=== PATIENT | male | born 1965 | race Caucasian/White ===

== ENCOUNTER 2024-03-04 10:48 | Emergency (ER) | payer MEDICAID, SELFPAY ==
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
--- NOTE | ~2024-03-04 | XR_ITS ---
EXAMINATION: XR SHOULDER, LEFT CLINICAL INFORMATION: left shoulder injury COMPARISON: None available. TECHNIQUE: AP external rotation, Grashey, scapular Y, and axillary views of the left shoulder. FINDINGS: There is a likely comminuted fracture of the left scapula, traversing the waning, spine, and possibly involving the inferior left glenoid. There is a minimally displaced fracture of the distal clavicle, with no overriding or angulation, however there is 5 mm of superior displacement of the distal fragment. Displaced fractures of left ribs 2 through 5, with tandem fractures ribs 3 and 4. No pneumothorax evident. Redemonstration of patchy opacity in the retrocardiac region left base. Glenohumeral joint is aligned anatomically. The AC joint is intact. The subacromial space is normal. No soft tissue abnormality grossly. XR/XR shoulder LT min 2V IMPRESSION: 1. Comminuted left scapular fracture is suspected, which likely involves the left inferior glenoid. Glenohumeral joint maintains normal alignment. 2. Mildly displaced but not angulated overriding fracture of the distal left clavicle. 3. Displaced fractures of the left second through fifth ribs. There are tandem fractures in the fourth and fifth ribs. 4. Left lung demonstrates no definite pneumothorax. There are patchy opacities in the retrocardiac region. Electronically signed by: Aidan Aragon MD 03/04/2024 12:57 PM [facility]
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
--- NOTE | ~2024-03-04 | XR_ITS ---
EXAMINATION: XR RIBS, LEFT CLINICAL INFORMATION: pain, injury COMPARISON: None available. TECHNIQUE: AP chest, and 3 views left ribs. FINDINGS: The cardiac silhouette is mildly prominent but likely magnified by technique. Aorta is uncoiled and mildly calcified. Normal hilar silhouettes. There is no pneumothorax or definitive effusion. Patchy atelectasis left base. Lungs otherwise clear. There are displaced fractures of the posterior second through fifth ribs on the left. There may be a first rib fracture as well. There is a fracture through the superior scapula just below the spine. The fracture appears to traverse the spine and may involve the inferior glenoid. There is a left distal clavicular fracture which is minimally displaced with no significant overriding or angulation. XR/XR ribs LT min 3V w CXR1V IMPRESSION: 1. Acute displaced fractures of the left second through fifth ribs posteriorly. There may be a first rib fracture as well. The left third and fourth ribs have tandem fractures. 2. Acute fracture through the superior scapula, which appears to traverse the scapular spine, and ultimately may involve the inferior glenoid. 3. There is no pneumothorax or effusion. There is patchy atelectasis/opacity in the left base. Differential includes atelectasis, contusion, and pneumonia. 4. The lungs are otherwise clear. Electronically signed by: Aidan Aragon MD 03/04/2024 12:53 PM [facility]
--- NOTE | ~2024-03-04 | CT_ITS ---
EXAMINATION: CT HEAD WITHOUT CONTRAST CT CERVICAL SPINE WITHOUT CONTRAST CLINICAL INFORMATION: Trauma. Positive head strike. COMPARISON: CT head dated 07/29/2019. TECHNIQUE: Contiguous axial imaging was performed from the skull base to vertex without intravenous administration of contrast. Contiguous axial CT images of the cervical spine were obtained without contrast. Sagittal and coronal reformats were provided and reviewed. This CT examination was performed using dose optimization techniques as appropriate, variously including the following: *Automated exposure control *Adjustment of mA and/or kV according to patient size (this includes techniques or standardized protocols for targeted exams where dose is matched to indication/reason for exam; i.e. extremities or head) *Use of iterative reconstruction technique DLP: 2212 mGy-cm FINDINGS: HEAD: There is no evidence of acute intracranial hemorrhage or territorial infarction. No abnormal mass effect or midline shift is seen. Up to white matter differentiation is well preserved. No extra-axial fluid collections are identified. The ventricles are normal in size. There is no abnormal attenuation within the brain parenchyma. The osseous structures and soft tissues are normal. The mastoid air cells and visualized portions of the paranasal sinuses are well aerated. CERVICAL SPINE: Normal vertebral body alignment. The normal cervical lordosis is maintained. No acute cervical spine fracture or subluxation. No loss of vertebral body height. Mild multilevel loss of intervertebral disc height with mild degenerative endplate changes. Unremarkable facet joints. No lytic or blastic osseous lesion. There are partially visualized, comminuted and mildly displaced fractures through the posterior aspect of the left 2nd and 3rd ribs. Trace adjacent pleural thickening and trace left apical pneumothorax with a small amount of air in the left chest wall. Findings are better evaluated on the concurrent chest CT. Unremarkable prevertebral soft tissues. No abnormal soft tissue mass or fluid collection. Thyroid within normal limits. Visualized lung apices are clear. Mild multilevel bilateral neural foraminal stenosis. No significant central canal stenosis. CT/CT cervical spine wo IV con IMPRESSION: Head: No acute intracranial hemorrhage or mass effect. Cervical Spine: No acute cervical spine fracture or subluxation. Partially visualized, comminuted and mildly displaced fractures through the posterior aspect of the left 2nd and 3rd ribs with trace adjacent pleural thickening and trace left apical pneumothorax. Findings are better evaluated on the concurrent chest CT. Electronically signed by: Tyree Farias MD 03/04/2024 04:16 PM [facility] [place]
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
[2024-03-04 11:20] VITALS: BP 128/70; PULSE 72; RESP 19; TEMP 36.6; O2SAT 98; BMI 22.9
--- NOTE | 2024-03-04 13:23 | PC.NURSE ---
CALL PLACED TO [facility] [place] LINE
[2024-03-04 13:55] VITALS: RESP 19
[2024-03-04] MEDS: Morphine Sulfate 4 MG/ML CARTRIDGE IVPUSH (13:55)
[2024-03-04] MEDS: 0.9 % Sodium Chloride 1,000 ML 999 ML IV (13:55)
[2024-03-04] MEDS: iohexoL 350 MG/ML 100 ML INFUS..BTL 85 ML IV (14:28)
[2024-03-04] MEDS: HYDROmorphone HCl 0.5 MG/0.5 ML SYRINGE IVPUSH (15:06)
--- NOTE | 2024-03-04 15:27 | PC.NURSE ---
This nurse called [facility] for Nurse to nurse NA. Will try again.
--- NOTE | 2024-03-04 15:36 | PC.NURSE ---
This Nurse called [facility] for report NA, still on hold again.
--- NOTE | 2024-03-04 15:56 | PC.NURSE ---
This nurse called [facility] again for nurse to nurse on hold for 20 minutes NA.
[2024-03-04 15:57] VITALS: BP 130/62; PULSE 75; RESP 19; TEMP 37.2; O2SAT 95
--- NOTE | 2024-03-04 16:02 | PC.NURSE ---
data collection interviewer aware that this nurse called [facility] multiple times and no answer on [facility] end.
== END 2024-03-04 15:57 | disposition short-term general hospital (02) ==
PROVIDERS: Emergency Provider Emergency Medicine
DX: S42.102A Fracture of unspecified part of scapula, left shoulder, initial encounter for closed fracture (principal); S22.42XA Multiple fractures of ribs, left side, initial encounter for closed fracture; M25.512 Pain in left shoulder; R51.9 Headache, unspecified; R07.81 Pleurodynia; M54.50 Low back pain, unspecified; F11.10 Opioid abuse, uncomplicated; V03.10XA Pedestrian on foot injured in collision with car, pick-up truck or van in traffic accident, initial encounter; Y93.89 Activity, other specified; Y92.488 Other paved roadways as the place of occurrence of the external cause; Y99.8 Other external cause status
CPT/HCPCS: 70450; 71101; 71260; 72125; 73030; 74177; 96361; 96374; 96375; 99285; J1171; J2270; Q9967

== ENCOUNTER → 2024-03-04 11:18 | Outpatient (BNV) | payer MEDICAID, SELFPAY | PROVIDERS: Visit Provider Radiology Diagnostic Radiology | DX: S22.42XA Multiple fractures of ribs, left side, initial encounter for closed fracture (principal); S42.142A Displaced fracture of glenoid cavity of scapula, left shoulder, initial encounter for closed fracture; S42.022A Displaced fracture of shaft of left clavicle, initial encounter for closed fracture | CPT/HCPCS: 71101; 73030 ==